=== PATIENT | female | born 1940 | race Caucasian/White ===

== ENCOUNTER 2018-02-09 10:27 | Outpatient (CLI) | payer MEDICARE ==
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
== END 2018-02-09 10:28 | disposition home or self-care (01) ==
LOC: SCSMRI 10:27
PROVIDERS: ATTEND Nurse Practitioner Family
DX: M47.22 Other spondylosis with radiculopathy, cervical region (principal); M99.81 Other biomechanical lesions of cervical region; M43.12 Spondylolisthesis, cervical region
CPT/HCPCS: 72141

== ENCOUNTER 2018-04-16 14:18 | Outpatient (CLI) | payer MEDICARE ==
--- NOTE | 2018-04-16 15:27 | RAD ---
CERVICAL SPINE 3 VIEWS: Date: 04/16/18 HISTORY: Neck pain. FINDINGS: Vertebral body heights are maintained. Disc space narrowing at the C5-6 and C6-7 levels with minimal degenerative retrolisthesis at each level. Osteophytosis throughout the lower vertebral bodies and fa cets. No acute fracture or dislocation. Cervicothoracic junction is intact. IMPRESSION: Degenerative changes lower cervical spine. No acute osseous abnormalities are demonstrated. POS: [facility]
--- NOTE | 2018-04-16 15:29 | RAD ---
LUMBAR SPINE 2 VIEWS: Date: 04/16/18 HISTORY: Back pain. FINDINGS: There are five lumbar-type vertebrae. Pedicles are intact. Vertebral body heights and alignment are m aintained. Osteophytosis throughout the lower facets. No acute fracture or dislocation. Prominent tamera cification over the arterial structures. IMPRESSION: 1. Degenerative changes lower lumbar spine. No evidence of compression fracture. 2. Atherosclerosis. POS: [facility]
--- NOTE | 2018-04-16 15:48 | MRI ---
MRI THORACIC SPINE NONCONTRAST: Date: 04/16/18 INDICATION: Compression fracture. HISTORY: Pain. Right upper extremity radiculopathy. FINDINGS: There is height loss with associated decreased T1 and T2 signal indicating prior vertebroplasty of th e T7 segment. Superior end plate height loss and Schmorl's node formation present without acute edema involving T11 and T12 segments. There is intrinsic T1 hyperintensity, rounded in morphology, involvi ng T12 vertebral body compatible with an intraosseous hemangioma. There is mild superior end plate he ight loss of T3, chronic appearing. No evidence of acute marrow edema or significant paraspinous soft tissue edema. The imaged thoracic spinal cord reveals no intrinsic, expansile process, or evidence of significant i ntramedullary signal abnormality. There is mild disc osteophyte at T7-8, largely due to inferior end plate irregularity from chronic compression deformity at T7. This effaces the ventral thecal sac with out significant cord deformity. There is also mild ventral thecal sac effacement of T10-11 and T11-12 levels due to chronic end plate deformities. Incidental note of multilevel cervical spondylosis, which does efface the ventral aspect of the verte bral canal contents, incompletely evaluated. IMPRESSION: Multilevel chronic compression deformities of the thoracic spine. Evidence of prior vertebroplasty of T7. No acute marrow edema. POS: [facility]
--- NOTE | 2018-04-16 16:02 | MRI ---
MRI LUMBAR SPINE NONCONTRAST: 04/16/18 HISTORY: Back pain. Difficulty walking. FINDINGS: The conus medullaris has a normal appearance. Minimal compression of the T12 superior end plate with no residual bone marrow edema. Hemangioma is also evident within the bone marrow of the T12 vertebral body. Minimal posterior disc bulge at the L2-3 level. Very mild osteophytosis throughout the facets. The thecal sac and neural foramina are patent. IMPRESSION: Minimal degenerative changes of the lumbar spine for the patient's age. No focal disc herniation or n erve root compression. Minimal T12 superior end plate compression, a chronic finding, as no bone marrow edema is evident. POS: [facility]
== END 2018-04-16 14:19 | disposition home or self-care (01) ==
LOC: TBSIIMAG 14:18
PROVIDERS: ATTEND Physician Assistant Surgical
DX: M47.26 Other spondylosis with radiculopathy, lumbar region (principal); M47.22 Other spondylosis with radiculopathy, cervical region; M54.5 Low back pain; M54.6 Pain in thoracic spine; M47.12 Other spondylosis with myelopathy, cervical region; M50.10 Cervical disc disorder with radiculopathy, unspecified cervical region; I70.0 Atherosclerosis of aorta; G95.20 Unspecified cord compression
CPT/HCPCS: 72050; 72110; 72146; 72148